=== PATIENT | female | born 1975 | race Caucasian/White ===

== ENCOUNTER 2017-05-08 10:24 | Emergency (ER) | payer MEDICAID, OTHER ==
[~2017-05-08] VITALS: Ht 154.9 cm; Wt 82.6 kg
[~2017-05-08 10:24] MED LIST: DEPO150I IM; OMEP20TA39 PO
[2017-05-08 10:44] VITALS: BP 186/93; PULSE 80; RESP 16; TEMP 98.4; O2SAT 97
[2017-05-08] MEDS ORDERED: OMEP40CA2 PO (10:46)
[2017-05-08] MEDS ORDERED: ORPHENADRINE INJ 60 MG/2 ML AMP IM ONE (11:15)
[2017-05-08] MEDS ORDERED: KETOROLAC TROMETHAMINE 60 MG/2 ML (IM) VIAL IM ONE (11:15)
[2017-05-08] MEDS ORDERED: IBUP1TAB7 PO (11:16)
[2017-05-08] MEDS ORDERED: ROBA500T PO (11:16)
--- NOTE | 2017-05-08 11:16 | PD ---
HPI Chief Complaint: Musculoskeletal Complaint Time Seen by Provider: 11:13 Travel History International Travel<30 days: No Contact w/Intl Traveler<30days: No Traveled to known affect area: No History of Present Illness HPI 41-year-old female presents emergency Department with complaint of right wrist pain and right shoulder pain, and right upper back pain 4 days. Had similar symptoms one year ago and said she was treated with muscle relaxers and pain medication. Denies medical injury. 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 Denies paresthesias, loss of sensation to the affected extremity. Reports decreased range of motion at the shoulder and wrist secondary to pain. Denies fever, vomiting. Denies chest pain, shortness of breath. Has taken Advil for symptom management. Pain is aggravated with movement of the right shoulder and wrist; right upper back pain is aggravated with palpation and movement of the neck to the right and left. Describes it as a pulling, stabbing, shooting sensation. Rates the pain 8/10. No known allergies. Dr. Brooke his primary care provider. Has no other medical complaints. No other modifying factors or associated signs and symptoms. PFSH Past Medical History High Cholesterol: Yes ("borderline") Diminished Hearing: No GERD: Yes Tetanus Vaccination: > 5 Years Influenza Vaccination: No ?: Not Tubal Ligation: Yes Past Surgical History Section: Yes (1990 & 2003) Gynecologic Surgery: Yes (x2 c section, tubal lig.) Joint Replacement: No Social History Alcohol Use: No Tobacco Use: No Substance Use: No Allergies-Medications (Allergen,Severity, Reaction): Coded Allergies: No Known Allergies (Verified Adverse Reaction, Unknown, 05/08/17) Reported Meds & Prescriptions Reported Meds & Active Scripts Active Ibuprofen 800 Mg Tab 800 Mg PO Q6HR PRN Robaxin (Methocarbamol) 500 Mg Tab 500 Mg PO QID PRN Reported Omeprazole 40 Mg Cap 40 Mg PO DAILY Review of Systems Except as stated in HPI: all other systems reviewed are Neg Physical Exam Narrative GENERAL: Well-nourished, well-developed female patient, in no acute distress; afebrile, nontoxic-appearing SKIN: Warm and dry. HEAD: Atraumatic. Normocephalic. EYES: Pupils equal and round. No scleral icterus. No injection or drainage. ENT: Mucosa pink and moist. Airway patent. NECK: Trachea midline. CARDIOVASCULAR: Regular rate. RESPIRATORY: No accessory muscle use. GASTROINTESTINAL: Obese. MUSCULOSKELETAL: Right upper extremity supple and non-tense with 2+ radial pulses and sensory intact without erythema or edema; with approximately 90 abduction to the right shoulder; shoulder joint stable; wrist with full range of motion; decreased corn detasseler strength when compared to the left; no obvious deformities. No obvious deformities. No clubbing. No cyanosis. No edema. BACK: Reproducible tenderness to the right upper trapezius muscle on palpation. NEUROLOGICAL: Awake and alert. Oriented 3. No obvious cranial nerve deficits. Motor grossly within normal limits. Normal speech. PSYCHIATRIC: Appropriate mood and affect; insight and judgment normal. Data Data Last Documented VS Vital Signs Date Time Temp Pulse Resp B/P (MAP) Pulse Ox O2 Delivery O2 Flow Rate FiO2 05/08/17 10:44 98.4 80 16 186/93 (124) 97 Orders Orders Ketorolac Inj (Toradol Inj) (05/08/17 11:15) Orphenadrine Inj (Norflex Inj) (05/08/17 11:15) Ed Discharge Order (05/08/17 11:16) [facility] Medical Decision Making Medical Screen Exam Complete: Yes Emergency Medical Condition: Yes Medical Record Reviewed: Yes Differential Diagnosis Muscle spasm, cervical radiculopathy, carpal tunnel syndrome Narrative Course 41-year-old female physical examination and history of present illness consistent with right upper trapezius muscle spasm, right shoulder pain, right wrist pain. Patient denies injury. Had similar symptoms 1 year ago. Patient is afebrile and nontoxic-appearing. Denies fever, vomiting. Toradol and Norflex administered in the ER. Robaxin and ibuprofen prescribed for home. Instructed patient to follow up with primary care provider. Patient verbalizes understanding and agreement with treatment plan. Patient is medically cleared and stable for discharge. Discussed reasons to return to the emergency department. Patient agrees with treatment plan. The patients vital signs are stable and the patient is stable for outpatient follow-up and treatment. Patient discharged home, stable and in no acute distress. Diagnosis Primary Impression: Trapezius muscle spasm Additional Impressions: Right shoulder pain Qualified Codes: M25.511 - Pain in right shoulder Right wrist pain Referrals: Primary Care Physician Patient Instructions: Arm Pain (ED), Carpal Tunnel Syndrome (GEN), Carpal Tunnel Syndrome Exercises (GEN), Cervical Radiculopathy (ED), General Instructions, Muscle Spasm (ED) Departure Forms: Tests/Procedures, Work Release Enter return to work date: May 10, 2017 Additional Instructions: Tylenol or ibuprofen as directed and as needed for pain Robaxin as prescribed and as needed for muscle spasms Heating pad and/or ice to affected area to reduce pain Avoid aggravating activities; increase activity as tolerated Follow-up with primary care provider Return to emergency department immediately with worsening of symptoms Med/Other Pt SpecificInfo: Prescription(s) given Scripts Ibuprofen (Ibuprofen) 800 Mg Tab 800 MG PO Q6HR Y for PAIN, #30 TAB 0 Refills Prov: April Burgos 05/08/17 Methocarbamol (Robaxin) 500 Mg Tab 500 MG PO QID Y for MUSCLE SPASM, #30 TAB 0 Refills Prov: April Burgos 05/08/17 Disposition: 01 DISCHARGE HOME Condition: Stable April Burgos May 08, 2017 11:16
== END 2017-05-08 11:32 | disposition home or self-care (01) ==
LOC: PHED 10:24 → PHEFT 11:32
DX: M62.830 Muscle spasm of back (principal); M25.511 Pain in right shoulder; M25.531 Pain in right wrist; E78.00 Pure hypercholesterolemia, unspecified; Z79.899 Other long term (current) drug therapy
CPT/HCPCS: 96372; 99284; J1885; J2360